=== PATIENT | female | born 1975 | race Caucasian/White ===

== ENCOUNTER 2022-12-23 10:14 | Emergency (ER) | payer OTHER ==
[~2022-12-23] VITALS: Ht 165.1 cm; Wt 79.4 kg
[2022-12-23 10:42] VITALS: BP 145/69
[2022-12-23] MEDS ORDERED: KETOROLAC 30 MG/ML VIAL IM ONE (12:20)
[2022-12-23] MEDS ORDERED: AMOX500C25 PO (12:22)
[2022-12-23] MEDS ORDERED: NAPR-1704 PO (12:22)
--- NOTE | 2022-12-23 12:37 | NUR ---
Patient discharged with v/s stable. Written and verbal after care instructions given and explained. Patient alert, oriented and verbalized understanding of instructions. Ambulatory with steady gait. All questions addressed prior to discharge. ID band removed. Patient advised to follow up with PMD. Rx of AMOXICILLIN, NAPROXEN given. Patient educated on indication of medication including possible reaction and side effects. Opportunity to ask questions provided and answered.
== END 2022-12-23 12:34 | disposition home or self-care (01) ==
LOC: MED 10:14
DX: K08.89 Other specified disorders of teeth and supporting structures (principal); Z79.899 Other long term (current) drug therapy; Z79.1 Long term (current) use of non-steroidal anti-inflammatories (NSAID)
CPT/HCPCS: 96372; 99283; J1885